=== PATIENT | female | born 1955 | race Caucasian/White ===

== ENCOUNTER 2021-12-24 05:52 | Inpatient (IN) ==
--- NOTE | 2021-12-02 14:45 | PAT Medication Instructions ---
Medication Instructions Date of Service December 02, 2021 Home Medications allopurinol 300 mg tablet 300 mg PO HS alprazolam 0.25 mg tablet (Xanax) 0.25 mg PO BID PRN aspirin 81 mg tablet,delayed release 81 mg PO QAM biotin 10,000 mcg capsule 10,000 mcg PO QAM cholecalciferol (vitamin D3) 50 mcg (2,000 unit) capsule (Vitamin D3) 50 mcg PO 3XWK cyanocobalamin (vitamin B-12) 1,000 mcg/mL injection syringe 1,000 mcg 3XWK hydrochlorothiazide 25 mg tablet 25 mg PO QAM metformin 1,000 mg tablet 1,000 mg PO BID metoprolol tartrate 25 mg tablet 25 mg PO BID potassium chloride 10 mEq capsule,extended release 20 meq PO BID pravastatin 20 mg tablet 20 mg PO HS promethazine 25 mg tablet 25 mg PO Q6H PRN vilazodone 20 mg tablet (Viibryd) 20 mg PO QAM Continue as directed cholecalciferol (vitamin D3) 50 mcg (2,000 unit) capsule (Vitamin D3) 50 mcg PO 3XWK (not day of surgery) cyanocobalamin (vitamin B-12) 1,000 mcg/mL injection syringe 1,000 mcg 3XWK (not day of surgery) promethazine 25 mg tablet 25 mg PO Q6H PRN(if needed) ASK your prescriber and surgeon aspirin 81 mg tablet,delayed release 81 mg PO QAM STOP taking 2 weeks before surgery biotin 10,000 mcg capsule 10,000 mcg PO QAM DO NOT take the morning of surgery hydrochlorothiazide 25 mg tablet 25 mg PO QAM metformin 1,000 mg tablet 1,000 mg PO BID potassium chloride 10 mEq capsule,extended release 20 meq PO BID Take morning of surgery With a small sip of water, OTHERWISE NOTHING TO EAT OR DRINK AFTER MIDNIGHT: alprazolam 0.25 mg tablet (Xanax) 0.25 mg PO BID PRN(if needed) metoprolol tartrate 25 mg tablet 25 mg PO BID vilazodone 20 mg tablet (Viibryd) 20 mg PO QAM Take evening before surgery allopurinol 300 mg tablet 300 mg PO HS alprazolam 0.25 mg tablet (Xanax) 0.25 mg PO BID PRN(if needed) metformin 1,000 mg tablet 1,000 mg PO BID metoprolol tartrate 25 mg tablet 25 mg PO BID pravastatin 20 mg tablet 20 mg PO HS Other Notes If you have any questions please call us at [phone] or [phone] or [phone] or [phone]
--- NOTE | 2021-12-10 12:44 | Anesthesiology Consultation ---
Date of Service December 10, 2021 Assessment & Plan (1) Encounter for pre-operative examination: - will attempt to obtain most recent chest CT. - check BSG am DOS. - awaiting surgeon ordered medical clearance. - anesthesia reaction: combative/belligerent. - COVID screening: Per assessment on 12/10/2021: Travel screen negative, no known COVID-19 positive contacts or current COVID-19 related symptoms in past 2 weeks. Patient vaccinated. Surgeon arranging preop COVID testing, scheduled 12/22/2021. Awaiting results. Chart Review Chart Review: Pending: Refer to Additional Notes / Consult section and Patient seen in Pre Admission Testing Teaching & Discussion Pre-Anesthesia Teaching/Discussion Notes: Instructed NPO after midnight before surgery, except medications with 15 cc of water. Medication instructions provided according to the PAT guidelines. History Surgery Operation Date: 12/24/21 07:45 Proposed Procedures p L3-S1 Revision Decompression and Fusion Spinal Cord Monitoring - Jai Cho, Height/Weight Height: 5 ft 4 in Weight: 84.4 kg Allergies Allergy/AdvReac Type Severity Reaction Status Date / Time ampicillin Allergy Severe RASH/ITCHY Verified 11/30/21 15:06 THROAT cephalexin [From Keflex] Allergy Severe RASH/ITCHY Verified 11/30/21 15:06 THROAT fish derived Allergy Severe Anaphylaxis Verified 11/30/21 15:06 hydrocodone Allergy Severe RASH/ITCHING Verified 11/30/21 15:07 ALL OVER BODY morphine Allergy Severe Anaphylaxis Verified 11/30/21 15:06 oxycodone [From Percocet] Allergy Severe Anaphylaxis Verified 11/30/21 15:06 Penicillins Allergy Severe TONGUE Verified 11/30/21 15:06 SWELLING prednisone Allergy Severe THROAT Verified 11/30/21 15:07 SWELLING tramadol Allergy Severe RASH/ITCHY Verified 11/30/21 15:06 THROAT codeine Allergy Intermediate nausea, Verified 12/10/21 13:16 vomiting, urticaria and pruritus IV ANTIBIOTICS Allergy Severe ORAL YEAST Uncoded 11/30/21 15:35 INFECTION/THRUSH Medications Home Medications Medication Instructions Recorded Confirmed Last Taken allopurinol 300 mg tablet 300 mg PO HS 11/30/21 11/30/21 Unknown alprazolam 0.25 mg tablet (Xanax) 0.25 mg PO BID PRN 11/30/21 11/30/21 Unknown aspirin 81 mg tablet,delayed 81 mg PO QAM 11/30/21 11/30/21 Unknown release biotin 10,000 mcg capsule 10,000 mcg PO QAM 11/30/21 11/30/21 Unknown cholecalciferol (vitamin D3) 50 50 mcg PO 3XWK 11/30/21 11/30/21 Unknown mcg (2,000 unit) capsule (Vitamin D3) cyanocobalamin (vitamin B-12) 1,000 mcg 3XWK 11/30/21 11/30/21 Unknown 1,000 mcg/mL injection syringe hydrochlorothiazide 25 mg tablet 25 mg PO QAM 11/30/21 11/30/21 Unknown metformin 1,000 mg tablet 1,000 mg PO BID 11/30/21 11/30/21 Unknown metoprolol tartrate 25 mg tablet 25 mg PO BID 11/30/21 11/30/21 Unknown potassium chloride 10 mEq 20 meq PO BID 11/30/21 11/30/21 Unknown capsule,extended release pravastatin 20 mg tablet 20 mg PO HS 11/30/21 11/30/21 Unknown promethazine 25 mg tablet 25 mg PO Q6H PRN 11/30/21 11/30/21 Unknown vilazodone 20 mg tablet (Viibryd) 20 mg PO QAM 11/30/21 11/30/21 Unknown Past Medical History Medical History (Updated 12/10/21 @ 13:23 by Lydia Beltran PA-C) Anxiety and depression Chronic obstructive pulmonary disease denies rescue inhaler Degenerative disc disease Diabetes mellitus, type 2 NIDDM Hx of basal cell carcinoma nose s/p excision Hyperlipidemia Hypertension controlled, stable per pt On home oxygen therapy 2.5 AT HS ONLY, states sleep study was negative for sleep apnea Peripheral neuropathy Post traumatic stress disorder Warthin tumor REMOVED Patient denies h/o stroke, seizures, heart attack, heart failure, blood clots or blood transfusions. Exercise / Class Metabolic Activity III < 4 Walking/Shop/Light housework (denies CP or SOB) Past Family History Family History Mother Family history of diabetes mellitus Family hx of colon cancer Father Family history of diabetes mellitus Other No family history of adverse response to anesthesia Past Surgical History Surgical History (Updated 12/10/21 @ 13:24 by Lydia Beltran PA-C) Fusion of spine LUMBAR H/O abdominal surgery BENIGN CYST REMOVED ATTACHED TO COLON AND OVARY H/O exploratory laparotomy MULTIPLE H/O parathyroidectomy H/O partial thyroidectomy X 2 (RESULTED IN TOTAL THYROIDECTOMY) BENIGN H/O shoulder surgery RT History of ankle surgery RT & HARDWARE REMOVED History of appendectomy History of bronchoscopy History of carpal tunnel release LEFT History of colonoscopy History of dilatation and curettage History of hysterectomy History of parotid gland removal History of tonsillectomy History of total hip arthroplasty RT Hx of basal cell carcinoma excision NOSE AREA Past Anesthesia History Other (anesthesia reaction: Pt relays concern of being told of belligerent behavior post-op; sister emotional crying after surgery) History of PONV No Hx of PONV and Hx of Motion Sickness Social History Smoking Status: Current every day smoker tobacco type: cigarettes Smoking cigarettes per day: LESS THAN 10 PER DAY ON AVERAGE *ADVISED Do You Dip or Chew Tobacco: No Hx Alcohol Use: No substance use type: does not use Review of Systems Occasional chronic wheezing with smoking, denies change or worsening. Patient denies chest pain, shortness of breath, dyspnea on exertion, witnessed apneas, reflux, fever, chills, cough, or palpitations. Physical Exam Vital Signs Vitals BP 126/79 P 72 TEMP 97.5 SP02 96% on RA RESP 17 Physical Full cervical extension range of motion without pain TMD 3.5 finger breaths Mallampati Score 2 Dentition: intact, 7 remaining teeth lower; denies chipped or loose teeth, caps/crowns, implants or bridges Lungs: normal respiratory effort. Clear throughout to auscultation, no adventitious breath sounds Cardiac: regular rate and rhythm, no murmurs noted Carotid arteries: negative bruit bilat Lab Results Anesthesia Preop Results Results Anesthesia Widget: WBC 8.66 K/uL (4.8-10.8) 12/10/21 Hgb 14.1 g/dL (12.0-16.0) 12/10/21 Hct 43.0 % (37-47) 12/10/21 Plt 315 K/uL (130-400) 12/10/21 Na 142 mmol/L (136-145) 12/10/21 K 4.0 mmol/L (3.5-5.1) 12/10/21 Cl 108 mmol/L (98-107) H 12/10/21 CO2 26 mmol/L (21-32) 12/10/21 BUN 20 mg/dl (6-23) 12/10/21 Creat 0.81 mg/dl (0.6-1.2) 12/10/21 Glucose Level 87 mg/dl (70-99(Fasting)) 12/10/21 PT 10.3 Seconds (9.0-12.0) 12/10/21 PTT 25.7 Seconds (21.0-31.0) 12/10/21 INR 1.0 (0.9-1.1) 12/10/21 HA1c 6.0 % (4.5-5.6) H 12/10/21 Urine Color Yellow 12/10/21 Urine Appearance Clear (Clear) 12/10/21 Urine pH 5.0 (4.5-7.5) 12/10/21 Urine Specific Greig 1.019 (1.000-1.030) 12/10/21 Urine Protein Negative (Negative) 12/10/21 Urine Glucose (UA) Negative (Negative) 12/10/21 Urine Ketones Negative (Negative) 12/10/21 Urine Blood Negative (Negative) 12/10/21 Urine Nitrite Negative (Negative) 12/10/21 Urine Bilirubin Negative (Negative) 12/10/21 Urine Urobilinogen Negative (Negative) 12/10/21 Urine Leukocyte Esterase 1+ (Negative) H 12/10/21 Urine WBC (Auto) 5-10 /hpf (0-5) H 12/10/21 Urine RBC (Auto) 0-4 /hpf (0-4) 12/10/21 Urine Hyaline Casts (Auto) 0 /lpf (0-5) 12/10/21 Urine Epithelial Cells (Auto) 20-30 /lpf (0-5) H 12/10/21 Urine Bacteria (Auto) Negative (Negative) 12/10/21 Blood Type O Negative 12/10/21 Antibody Screen NEGATIVE 12/10/21 Testing Electrocardiogram Date: 12/10/21 NSR, rate 64 bpm Chest X-Ray Date: 12/10/21 The cardiomediastinal and hilar silhouettes are within normal limits. No pneumothorax, pleural effusion or overt pulmonary edema. There is a 9.4 cm basilar triangular opacity noted on the lateral view. Degenerative changes of the shoulders and spine. IMPRESSION: 1. No acute processes of the chest. 2. Basilar pulmonary opacity likely correlates with the patient's reportedly known pulmonary sequestration.
[2021-12-24] MEDS ORDERED: CeleBREX 200 MG CAP PO SCH (06:00)
[2021-12-24] MEDS ORDERED: LR 500ML BOLUS, THEN 15ML/HR IV SCH (06:00)
[2021-12-24] MEDS ORDERED: CLINDAMYCIN/D5W 600 MG/54 ML BAG IV SCH (06:00)
[2021-12-24] MEDS ORDERED: ACETAMINOPHEN 500 MG TAB PO SCH (06:00)
[2021-12-24] MEDS ORDERED: GABAPENTIN 300 MG CAP PO SCH (06:00)
[2021-12-24] MEDS ORDERED: PROPOFOL IV EMULSION 10 MG/ML 20 ML VIAL IV ONE (06:51)
[2021-12-24] MEDS ORDERED: fentaNYL citrate 100 MCG/2 ML VIAL ONE (06:51)
[2021-12-24] MEDS ORDERED: ROCURONIUM BROMIDE 10 MG/ML 5 ML VIAL IV ONE (06:51)
[2021-12-24] MEDS ORDERED: LIDOCAINE 2% 2 ML VIAL/AMP(20MG/ML) INFIL ONE (06:51)
[2021-12-24] MEDS ORDERED: MIDAZOLAM HCL 1 MG/ML 2ML VIAL ONE (06:51)
[2021-12-24] MEDS ORDERED: ATROPINE SULFATE 0.1 MG/ML 10ML SYR IV PRN (07:08)
[2021-12-24] MEDS ORDERED: BUPIVACAINE/EPINEPHRINE 0.25% 1:200,000 30 ML VIAL ONE (07:08)
[2021-12-24] MEDS ORDERED: PROMETHAZINE HCL 12.5 MG in SODIUM CHLORIDE 0.9% 50 ML IV PRN ×2 (07:08→13:06)
[2021-12-24] MEDS ORDERED: ONDANSETRON INJ 2 MG/ML 2 ML VIAL IV PRN ×2 (07:08→13:06)
--- NOTE | 2021-12-24 07:25 | History & Physical Bridge Note ---
Date of Service December 24, 2021 History & Physical Bridge Note I have examined the patient, reviewed the History & Physical and in the interval since the performance of the History & Physical I have noted the following changes of clinical significance: no changes noted
[2021-12-24] MEDS ORDERED: ONDANSETRON INJ 2 MG/ML 2 ML VIAL ONE ×2 (07:27→09:42)
--- NOTE | 2021-12-24 07:27 | History & Physical Report ---
Date of Service December 24, 2021 Assessment & Plan (1) Neurogenic claudication due to lumbar spinal stenosis: Plan: L3-S1 revision decompression and fusion History of Present Illness Chief Complaint: Back and bilateral leg pain Primary Care Provider: Love Price DO This is a 66-year-old female who presents with current persistent back and bilateral leg pain. Failed extensive course of nonoperative care is here for surgical invention. Allergies Allergy/AdvReac Type Severity Reaction Status Date / Time ampicillin Allergy Severe RASH/ITCHY Verified 12/24/21 06:24 THROAT cephalexin [From Keflex] Allergy Severe RASH/ITCHY Verified 12/24/21 06:24 THROAT fish derived Allergy Severe Anaphylaxis Verified 12/24/21 06:24 hydrocodone Allergy Severe RASH/ITCHING Verified 12/24/21 06:24 ALL OVER BODY morphine Allergy Severe Anaphylaxis Verified 12/24/21 06:24 oxycodone [From Percocet] Allergy Severe Anaphylaxis Verified 12/24/21 06:24 Penicillins Allergy Severe TONGUE Verified 12/24/21 06:24 SWELLING prednisone Allergy Severe THROAT Verified 12/24/21 06:24 SWELLING tramadol Allergy Severe RASH/ITCHY Verified 12/24/21 06:24 THROAT codeine Allergy Intermediate nausea, Verified 12/24/21 06:24 vomiting, urticaria and pruritus IV ANTIBIOTICS Allergy Severe ORAL YEAST Uncoded 12/24/21 06:24 INFECTION/THRUSH Home Medications Medication Instructions Recorded Confirmed Type allopurinol 300 mg tablet 300 mg PO HS 11/30/21 12/24/21 History alprazolam 0.25 mg tablet (Xanax) 0.25 mg PO BID PRN 11/30/21 12/24/21 History aspirin 81 mg tablet,delayed 81 mg PO QAM 11/30/21 12/24/21 History release biotin 10,000 mcg capsule 10,000 mcg PO QAM 11/30/21 12/24/21 History cholecalciferol (vitamin D3) 50 50 mcg PO 3XWK 11/30/21 12/24/21 History mcg (2,000 unit) capsule (Vitamin D3) cyanocobalamin (vitamin B-12) 1,000 mcg 3XWK 11/30/21 12/24/21 History 1,000 mcg/mL injection syringe hydrochlorothiazide 25 mg tablet 25 mg PO QAM 11/30/21 12/24/21 History metformin 1,000 mg tablet 1,000 mg PO BID 11/30/21 12/24/21 History metoprolol tartrate 25 mg tablet 25 mg PO BID 11/30/21 12/24/21 History potassium chloride 10 mEq 20 meq PO BID 11/30/21 12/24/21 History capsule,extended release pravastatin 20 mg tablet 20 mg PO HS 11/30/21 12/24/21 History promethazine 25 mg tablet 25 mg PO Q6H PRN 11/30/21 12/24/21 History vilazodone 20 mg tablet (Viibryd) 20 mg PO QAM 11/30/21 12/24/21 History levothyroxine 100 mcg tablet 100 mcg PO DAILY 12/24/21 12/24/21 History (Synthroid) Past Med/Surg History Medical History (Updated 12/24/21 @ 07:26 by Jai Cho DO) Anxiety and depression Chronic obstructive pulmonary disease denies rescue inhaler Degenerative disc disease Diabetes mellitus, type 2 NIDDM Hx of basal cell carcinoma nose s/p excision Hyperlipidemia Hypertension controlled, stable per pt On home oxygen therapy 2.5 AT HS ONLY, states sleep study was negative for sleep apnea Peripheral neuropathy Post traumatic stress disorder Warthin tumor REMOVED Surgical History Fusion of spine LUMBAR H/O abdominal surgery BENIGN CYST REMOVED ATTACHED TO COLON AND OVARY H/O exploratory laparotomy MULTIPLE H/O parathyroidectomy H/O partial thyroidectomy X 2 (RESULTED IN TOTAL THYROIDECTOMY) BENIGN H/O shoulder surgery RT History of ankle surgery RT & HARDWARE REMOVED History of appendectomy History of bronchoscopy History of carpal tunnel release LEFT History of colonoscopy History of dilatation and curettage History of hysterectomy History of parotid gland removal History of tonsillectomy History of total hip arthroplasty RT Hx of basal cell carcinoma excision NOSE AREA Family History Mother Family history of diabetes mellitus Family hx of colon cancer Father Family history of diabetes mellitus Other No family history of adverse response to anesthesia Social History Smoking Status: Current every day smoker Cigarettes Per Day: LESS THAN 10 PER DAY ON AVERAGE *ADVISED; Second Hand Exposure: Yes (IN THE PAST); Do You Dip or Chew Tobacco: No; Hx Alcohol Use: No Preferred Language: Cypriot [employer] Required: No Beliefs That Will Affect Care: None Current Living Situation: Alone Feels Safe at Home: Yes Safety Concerns: Feels Safe At This Time Assistive Devices: Denture - Upper, Glasses and Oxygen - at Night Physical Exam Physical Exam: Patient is alert and oriented heart regular rate and rhythm Lungs clear to auscultation Results & Data Results & Data ([facility]) Vital Signs (Past 12 Hours) Vital Signs Temp Pulse Resp BP Pulse Ox 12/24/21 06:29 36.8 C 72 18 133/56 L 96
[2021-12-24] MEDS ORDERED: DEXAMETHASONE SOD INJ 4 MG/ML VIAL ONE ×2 (08:18→10:19)
[2021-12-24] MEDS ORDERED: HYDROmorphone INJ 2 MG/ML SYR/VIAL ONE (08:19)
[2021-12-24] MEDS ORDERED: PHENYLEPHRINE HCL 10 MG/ML VIAL ONE (08:28)
[2021-12-24] MEDS ORDERED: ePHEDrine sulfate 50 MG/ML AMP ONE (08:28)
[2021-12-24] MEDS ORDERED: NEOSTIGMINE METHYLSULFATE 1 MG/ML 10ML VIAL ONE (09:42)
[2021-12-24] MEDS ORDERED: GLYCOPYRROLATE 0.2 MG/ML VIAL ONE (09:42)
[2021-12-24] MEDS ORDERED: FLOSEAL HEMOSTATIC MATRIX 10ML TOP ONE (09:58)
--- NOTE | 2021-12-24 10:44 | Operative Report ---
Post Operative Report Pre & Post Diagnosis Operation Date: 12/24/21 07:45 Pre-Op Diagnosis: Neurogenic Claudication due to Lumbar Spinal Stenosis Post-Op Diagnosis: Neurogenic Claudication due to Lumbar Spinal Stenosis I identified the patient and participated in the time-out.: Yes Procedure Operation Date: 12/24/21 07:45 Actual Procedures #1 revision decompression with bilateral medial facetectomies and foraminotomies L2-L3, L3-L4, L4-5 L5-S1. #2 posterior spinal fusion L3-S1. #3 placement posterior segmental instrumentation L3-S1. #4 interbody fusion L3-L4, L4-5 and L5-S1. #5 placement of Spira cage 13 x 26 mm at L3-L4, 10 x 26 mm at L4-5, 9 x 26 mm at L5-S1. #6 placement locally harvested morselized autograft in the posterior gutters. #7 placement infuse collagen sponge, and master graft in the posterior gutters and I factor interbody spaces. Surgeon Jai Cho, DO Inbound Sales Representative Mook Dean Estimated Blood Loss 100 Findings See Below The patient is 5 foot 3 inches tall weighing over 83 kg with a BMI in excess of 32. The patient's body habitus did contribute to his significant technical difficulty requiring her deepest retractors and longer instruments in order to perform her procedure. This at least 50% increased operative time. Specimens None Indications This is a 66-year-old female who presents with above-mentioned diagnosis after failed extensive course of nonoperative care she is here for surgical invention. Description of Procedure Patient was met with identified informed consent obtained. Patient was then taken to the operative suite underwent an patient placed in a prone position the [facility] top Regan frame. All bony prominences well-padded eyes inspected to ensure no external pressure placed upon the. This point the lumbar spine was prepped and draped in normal sterile fashion. Sharp dissection with the assistance of Bovie cautery was performed down to and exposing the remaining lamina and transverse processes of L3 L4-5 and sacral ala bilaterally. From caudal at fashion revision complete laminectomy of the 5 L4 L3 and L2 was performed including medial facetectomies and foraminotomies addressing severe spinal stenosis. Pedicle screws were then placed in L3-L4-L5 and S1 levels bilaterally with assistance of fluoroscopy and proper sized alejandro placed. By way of a transforaminal approach on the left complete discectomy of L5-S1 was performed endplates curetted to subcortical bleeding bone and a 9 x 26 mm Spira cage filled with I factor tapped in position. Then proceeded to L4-L5 and again by way of a transfemoral approach and left complete discectomy performed endplates curetted to subcortically bone and a 10 x 26 mm spiral cage with I factor tapped in position. Lastly presented to L3-L4 and again by way of a transforaminal approach and left pleat discectomy performed endplates curetted to subcortically bone and a 13 x 26 mm spiral cage with I factor tapped in position. The rods were then compressed locked in final position bilaterally. The transverse processes of L3-L4-L5 and sacral ala burred to subcortical bleeding bone. Infuse collagen sponge master graft local autograft was placed in the posterior gutters. 15 round ANAND drain inserted. The incision was then closed with 1 Vicryl the fascia 2-0 Vicryl subcutaneously and 4 Monocryl for final skin closure. Steri-Strip sterile dressings placed. Patient waken taken to PACU stable condition. Please note spinal cord monitoring visualized at the procedure no changes noted. Lastly Mook Dean was present at the entire surgeon while the patient positioning complex portions of the surgery and final skin closure. I attest to the content of the Intraoperative Record and any orders documented therein. Any exceptions are noted below.
--- NOTE | 2021-12-24 10:54 | Fluoroscopy Report ---
FL lumbar spine 2-3V CLINICAL HISTORY: L3-S1 REVISION decompression and fusion COMPARISON STUDY: None. FLUOROSCOPY TIME: 28 seconds. FINDINGS: 2 fluoroscopic spot images of the lumbar spine demonstrate posterior decompression and fusi on from L3 through S1 with pedicle screws and rods. Disc spacers are in place. The hardware appears i ntact. IMPRESSION: Fluoroscopic assistance provided for L3-S1 posterior decompression and fusion. ACT 112: Negative or not required by law. Electronically signed by: Benson Damon M.D. 12/24/2021 10:53 AM
[2021-12-24] MEDS: HYDROmorphone INJ 1 MG/ML SYRINGE IV PRN ×4 (11:49→22:55)
--- NOTE | 2021-12-24 12:07 | Anesthesiology Progress Note ---
Date of Service December 24, 2021 Anesthesia Post Procedure Vital Signs Vital Signs: Temp Pulse Pulse Resp BP BP Pulse Ox 12/24/21 11:55 74 14 126/71 93 12/24/21 11:45 83 18 130/66 95 12/24/21 11:35 84 13 131/72 98 12/24/21 11:25 86 18 124/69 97 12/24/21 11:15 36.2 C L 87 12 131/82 94 12/24/21 06:29 36.8 C 72 18 133/56 L 96 Pain Intensity Lower Back: Pain Intensity: 7 Transfer of Care Handoff Completed per policy Notes Mental Status: alert / awake / arousable Patient Amnestic to Procedure: Yes Nausea / Vomiting: adequately controlled Pain: adequately controlled Airway Patency, RR, SpO2: stable & adequate BP & HR: stable & adequate Hydration State: stable & adequate Anesthetic Complications: no major complications apparent
[2021-12-24] MEDS ORDERED: diphenhydrAMINE Capsule 25 MG CAP PO PRN (13:06)
[2021-12-24] MEDS ORDERED: LORazepam 2 MG/1 ML VIAL IV PRN (13:06)
[2021-12-24] MEDS ORDERED: ALUMINUM/MAGNESIUM SUSP 30 ML UDC PO PRN (13:06)
[2021-12-24] MEDS ORDERED: ACETAMINOPHEN 1,000 MG/100 ML VIAL IV PRN (13:06)
[2021-12-24] MEDS ORDERED: METOCLOPRAMIDE HCL INJ 5 MG/ML 2 ML VIAL IV PRN (13:06)
[2021-12-24] MEDS ORDERED: NALOXONE HCL 0.4 MG/1 ML VIAL/CARP IV PRN (13:06)
[2021-12-24] MEDS ORDERED: FAMOTIDINE 20 MG TAB PO PRN (13:06)
[2021-12-24] MEDS ORDERED: bisacodyL 10 MG SUPP PR PRN (13:06)
[2021-12-24] MEDS ORDERED: ACETAMINOPHEN 500 MG TAB PO PRN (13:06)
[2021-12-24] MEDS ORDERED: SOD PHOSPHATE/SOD BIPHOSPHATE ENEMA 132 ML BTL PR PRN (13:06)
[2021-12-24] MEDS ORDERED: ALPRAZolam 0.25 MG TABLET PO PRN (13:06)
[2021-12-24] MEDS ORDERED: LORazepam 0.5 MG TAB PO PRN (13:06)
[2021-12-24] MEDS ORDERED: HYDROmorphone INJ 0.5 MG/0.5 ML SYR IV PRN (13:06)
[2021-12-24] MEDS ORDERED: hydrOXYzine HCl 25 MG TAB PO PRN (13:06)
[2021-12-24] MEDS ORDERED: DO NOT ADMINISTER FLU VACCINE PRN (13:06)
[2021-12-24] MEDS ORDERED: DO NOT ADMINISTER PNEUMOCOCCAL VACCINE PRN (13:06)
[2021-12-24] MEDS ORDERED: MAGNESIUM HYDROXIDE SUSP 30 ML UDC PO PRN (13:06)
[2021-12-24] MEDS ORDERED: PROMETHAZINE HCL 25 MG TAB PO PRN (13:06)
[2021-12-24] MEDS ORDERED: ONDANSETRON 4 MG OD TAB PO PRN (13:06)
[2021-12-24] MEDS: SODIUM CHLORIDE 0.9% 1000ML 1,000 ML IV SCH ×2 (13:33→22:54)
--- NOTE | 2021-12-24 13:56 | Consultation ---
Date of Consultation December 24, 2021 Assessment & Plan (1) Status post lumbar surgery: Post op day# 0 S/P revision decompression L2-S1 and fusion L3-S1 by Dr Cho EB#100ml -pain management per ortho -wound management per ortho -PT/OT as appropriate -DVT prophylaxis per ortho -incentive spirometry -monitor H&H for acute blood loss anemia; pre-op Hgb: 14 (2) Diabetes mellitus, type 2: A1c: 6.0 on 12/10/2021 -Hold home metformin -NovoLog sliding scale per protocol (3) Hypertension: -Continue metoprolol tartrate, HCTZ with holding parameters (4) Hyperlipidemia: -Continue pravastatin (5) Chronic obstructive pulmonary disease: Not on home inhalers -Albuterol neb as needed (6) Nocturnal hypoxia: - Continue 2.5 L oxygen at bedtime (7) Anxiety and depression: - Continue home meds (8) Tobacco use: -Denies nicotine patch H/O THYROIDECTOMY -Continue levothyroxine DVT Prophylaxis -SCDs per ortho Disposition per primary service Follows with Dr Love Price for routine care Pt was seen and care coordinated with Dr Layne. See addendum Thank you for this consultation. We will follow the patient with you during their hospital stay. You can reach a member of the [facility]ist Team 20/02 via [email or web address] Supervising Physician Co-Signing Physician Notes Patient is a 66-year-old female with history of diabetes mellitus, tobacco use disorder, COPD, nocturnal hypoxia and other medical problems was consulted for postop medical management after having lumbar surgery by Dr. Cho. Patient is doing well postoperatively. Admits to having some pain at surgical site. Denies any chest pain, shortness of breath, dizziness, nausea, abdominal pain. On exam patient is obese, no apparent distress, normocephalic atraumatic, EOMI, lungs are clear to auscultation, normal breath sounds, S1-S2, no murmur, no pedal edema, abdomen soft, nontender, normal bowel sounds, back-surgical site in dressing, alert, awake, oriented, grossly moves all extremities. Labs from December 10, 2021 reviewed. HbA1c 6.0. Imaging studies reviewed. Patient is consulted for postop medical management. Pain control, activity, DVT prophylaxis as per primary team. Bowel regimen to prevent constipation. Monitor for postop anemia. Incentive spirometry. Agree with starting on insulin for management of diabetes mellitus. Monitor blood pressure. Continue supplemental oxygen at bedtime. Counseled to quit smoking. Patient refused nicotine patch. I personally reviewed the record. Patient is interviewed and examined at bedside. Patient's care is coordinated with Ne Walters PA-C. Please refer to the documentation above for details of patient's presentation and for discussion of other issues. History of Present Illness Requesting Physician: Dr Cho Reason for Consultation: Post op medical management Attending Physician: Jai Cho, DO History of Present Illness Patient is 66 y/o F with PMH DM II, HTN, HLD, COPD, nocturnal hypoxia on 2.5 L at bedtime, anxiety, depression, tobacco use seen in medical consultation s/p revision decompression L2-S1 and fusion L3-S1 today by Dr. Cho. Postop patient reports feeling sleepy and having dull low back pain rating 7 out of 10 on pain scale. Reports BM yesterday. Has Rodriguez cath in place. Denies fever/chills, diaphoresis, N/V/D/C, BETH, dizziness, vision changes, neck pain, CP, SOB, cough, choking, rhinorrhea, abdominal pain, paresthesias, extremity edema, rashes, urinary symptoms. Allergies Allergy/AdvReac Type Severity Reaction Status Date / Time ampicillin Allergy Severe RASH/ITCHY Verified 12/24/21 06:24 THROAT cephalexin [From Keflex] Allergy Severe RASH/ITCHY Verified 12/24/21 06:24 THROAT fish derived Allergy Severe Anaphylaxis Verified 12/24/21 06:24 hydrocodone Allergy Severe RASH/ITCHING Verified 12/24/21 06:24 ALL OVER BODY morphine Allergy Severe Anaphylaxis Verified 12/24/21 06:24 oxycodone [From Percocet] Allergy Severe Anaphylaxis Verified 12/24/21 06:24 Penicillins Allergy Severe TONGUE Verified 12/24/21 06:24 SWELLING prednisone Allergy Severe THROAT Verified 12/24/21 06:24 SWELLING tramadol Allergy Severe RASH/ITCHY Verified 12/24/21 06:24 THROAT codeine Allergy Intermediate nausea, Verified 12/24/21 06:24 vomiting, urticaria and pruritus IV ANTIBIOTICS Allergy Severe ORAL YEAST Uncoded 12/24/21 06:24 INFECTION/THRUSH Home Medications Medication Instructions Recorded Confirmed Type allopurinol 300 mg tablet 300 mg PO HS 11/30/21 12/24/21 History alprazolam 0.25 mg tablet (Xanax) 0.25 mg PO BID PRN 11/30/21 12/24/21 History aspirin 81 mg tablet,delayed 81 mg PO QAM 11/30/21 12/24/21 History release biotin 10,000 mcg capsule 10,000 mcg PO QAM 11/30/21 12/24/21 History cholecalciferol (vitamin D3) 50 50 mcg PO 3XWK 11/30/21 12/24/21 History mcg (2,000 unit) capsule (Vitamin D3) cyanocobalamin (vitamin B-12) 1,000 mcg 3XWK 11/30/21 12/24/21 History 1,000 mcg/mL injection syringe hydrochlorothiazide 25 mg tablet 25 mg PO QAM 11/30/21 12/24/21 History metformin 1,000 mg tablet 1,000 mg PO BID 11/30/21 12/24/21 History metoprolol tartrate 25 mg tablet 25 mg PO BID 11/30/21 12/24/21 History potassium chloride 10 mEq 20 meq PO BID 11/30/21 12/24/21 History capsule,extended release pravastatin 20 mg tablet 20 mg PO HS 11/30/21 12/24/21 History promethazine 25 mg tablet 25 mg PO Q6H PRN 11/30/21 12/24/21 History vilazodone 20 mg tablet (Viibryd) 20 mg PO QAM 11/30/21 12/24/21 History levothyroxine 100 mcg tablet 100 mcg PO DAILY 12/24/21 12/24/21 History (Synthroid) Patient History Medical History (Updated 12/24/21 @ 14:18 by Ne Walters PA-C) Anxiety and depression Chronic obstructive pulmonary disease denies rescue inhaler Degenerative disc disease Diabetes mellitus, type 2 NIDDM Hx of basal cell carcinoma nose s/p excision Hyperlipidemia Hypertension controlled, stable per pt Nocturnal hypoxia On home oxygen therapy 2.5 AT HS ONLY, states sleep study was negative for sleep apnea Peripheral neuropathy Post traumatic stress disorder Warthin tumor REMOVED Surgical History (Updated 12/24/21 @ 14:18 by Ne Walters PA-C) Fusion of spine LUMBAR H/O abdominal surgery BENIGN CYST REMOVED ATTACHED TO COLON AND OVARY H/O exploratory laparotomy MULTIPLE H/O parathyroidectomy H/O partial thyroidectomy X 2 (RESULTED IN TOTAL THYROIDECTOMY) BENIGN H/O shoulder surgery RT History of ankle surgery RT & HARDWARE REMOVED History of appendectomy History of bronchoscopy History of carpal tunnel release LEFT History of colonoscopy History of dilatation and curettage History of hysterectomy History of parotid gland removal History of tonsillectomy History of total hip arthroplasty RT Hx of basal cell carcinoma excision NOSE AREA Family History Mother Family history of diabetes mellitus Family hx of colon cancer Father Family history of diabetes mellitus Other No family history of adverse response to anesthesia Social History Smoking Status: Current every day smoker Cigarettes Per Day: LESS THAN 10 PER DAY ON AVERAGE *ADVISED; Second Hand Exposure: Yes (IN THE PAST); Do You Dip or Chew Tobacco: No; Hx Alcohol Use: No Preferred Language: [employer] Consultant Required: No Beliefs That Will Affect Care: None Current Living Situation: Alone Feels Safe at Home: Yes Safety Concerns: Feels Safe At This Time Assistive Devices: Denture - Upper, Glasses and Oxygen - at Night Review of Systems Review of Systems: All systems reviewed & are unremarkable except as noted in HPI & below Physical Exam Physical Exam: General: no acute distress, obese Head: normocephalic, atraumatic Eyes: conjunctiva non-injected, anicteric ENT: normal inspection external ears, nose, mucous membranes moist Neck: supple, trachea midline Lungs: clear, no respiratory distress, no wheezing/rhonchi/rales CV: RRR, no murmur, no pretibial edema Abd: normal BS, soft, non-tender Back: +ANAND drain in place with serosanguineous drainage Ext: no cyanosis, no calf tenderness, sensation to light touch intact Neuro: A&O x 3, no focal deficits noted, normal affect Skin: warm, dry Results & Data ([facility]) Vital Signs (Past 12 Hours) Vital Signs Temp Pulse Pulse Pulse Resp BP BP 12/24/21 13:38 36.6 C 85 16 104/68 12/24/21 13:04 36.5 C 89 16 114/76 12/24/21 12:15 76 17 114/81 12/24/21 12:05 36.3 C L 75 12 123/71 12/24/21 11:55 74 14 126/71 12/24/21 11:45 83 18 130/66 12/24/21 11:35 84 13 131/72 12/24/21 11:25 86 18 124/69 12/24/21 11:15 36.2 C L 87 12 131/82 12/24/21 06:29 36.8 C 72 18 133/56 L Pulse Ox 12/24/21 13:38 93 12/24/21 13:04 93 12/24/21 12:15 93 12/24/21 12:05 93 12/24/21 11:55 93 12/24/21 11:45 95 12/24/21 11:35 98 12/24/21 11:25 97 12/24/21 11:15 94 12/24/21 06:29 96 Diagnostic Findings Lumbar Spine X-Ray 12/24/21 07:45 FL lumbar spine 2-3V CLINICAL HISTORY: L3-S1 REVISION decompression and fusion COMPARISON STUDY: None. FLUOROSCOPY TIME: 28 seconds. FINDINGS: 2 fluoroscopic spot images of the lumbar spine demonstrate posterior decompression and fusion from L3 through S1 with pedicle screws and rods. Disc spacers are in place. The hardware appears intact. IMPRESSION: Fluoroscopic assistance provided for L3-S1 posterior decompression and fusion. ACT 112: Negative or not required by law. Electronically signed by: Benson Damon M.D. 12/24/2021 10:53 AM
[2021-12-24] MEDS ORDERED: DEXTROSE 50% 50 ML SYRINGE IV PRN (13:59)
[2021-12-24] MEDS ORDERED: CARBOHYDRATES FOR HYPOGLYCEMIA PO PRN (13:59)
[2021-12-24] MEDS ORDERED: GLUCAGON FOR INJ 1 MG VIAL SQ PRN (13:59)
[2021-12-24] MEDS ORDERED: GLUCOSE 40% GEL 15 GM TUBE PO PRN (13:59)
[2021-12-24] MEDS ORDERED: GLUCOSE 10 TABS/TUBE PO PRN (13:59)
[2021-12-24] MEDS ORDERED: CHOLECALCIFEROL 1,000 UNITS 25 MCG TAB PO SCH (14:00)
[2021-12-24] MEDS ORDERED: ALBUTEROL 0.083% NEBU SOLN 3 ML VIAL NEB PRN (14:13)
[2021-12-24] MEDS: CLINDAMYCIN 600 MG in DEXTROSE 5% 50 ML IV SCH (16:39)
[2021-12-24] MEDS: INSULIN ASPART PER UNIT SC SCH ×2 (17:30→21:44)
[2021-12-24] MEDS: METOPROLOL TARTRATE 25 MG TAB PO SCH (20:54)
[2021-12-24] MEDS: PRAVASTATIN SOD 20 MG TAB PO SCH (20:55)
[2021-12-24] MEDS: DOCUSATE SODIUM/SENNA 50/8.6MG TAB PO SCH (20:55)
[2021-12-24] MEDS: allopurinoL 300 MG TAB PO SCH (20:55)
[2021-12-24] MEDS: POTASSIUM CHLORIDE CRTAB 20 MEQ TABCR PO SCH (20:56)
[2021-12-25] MEDS: CLINDAMYCIN 600 MG in DEXTROSE 5% 50 ML IV SCH (00:11)
[2021-12-25] MEDS: POLYETHYLENE (MIRALAX) 17 GM PACK PO SCH ×4 (05:32→23:06)
[2021-12-25] MEDS: LEVOTHYROXINE SODIUM 100 MCG TABLET PO SCH (05:33)
[2021-12-25] MEDS: HYDROmorphone INJ 1 MG/ML SYRINGE IV PRN (05:38)
[2021-12-25 08:23] LABS: Basophils # (auto) 0.02 K/uL (0-0.2); Basophils % (auto) 0.2 %; Eosinophils # (auto) 0.04 K/uL (0-0.5); Eosinophils % (auto) 0.5 %; Hematocrit (blood only) 33.1 % (37-47); Hemoglobin 10.9 g/dL (12.0-16.0); Immature Granulocytes # (auto) 0.02 K/uL (0.00-0.02); Immature Granulocytes % (auto) 0.2 %; Lymphocytes # (auto) 1.57 K/uL (1.2-3.4); Lymphocytes % (auto) 18.9 %; Mean Corpuscular Hemoglobin 28.4 pg (25-34); Mean Corpuscular Hgb Conc 32.9 g/dL (32-36); Mean Corpuscular Volume 86.2 fL (80-100); Mean Platelet Volume 9.8 fL (7.4-10.4); Monocytes # (auto) 0.95 K/uL (0.11-0.59); Monocytes % (auto) 11.4 %; Neutrophils # (auto) 5.71 K/uL (1.4-6.5); Neutrophils % (auto) 68.8 %; Platelet Count 245 K/uL (130-400); RDW Coefficient of Variation 17.5 % (11.5-14.5); RDW Standard Deviation 55.1 fL (36.4-46.3); Red Blood Count 3.84 M/uL (4.2-5.4); White Blood Count 8.31 K/uL (4.8-10.8)
[2021-12-25 08:37] LABS: BUN Creatinine Ratio 21.4 (10-20); Calcium 8.1 mg/dl (8.5-10.1); Creatinine Clr Calc Pharmacy 68.1 ml/min; Est GFR (African American) 83.9 ml/min; Est GFR (Non-African American) 72.4 ml/min; Potassium 3.8 mmol/L (3.5-5.1)
[2021-12-25] MEDS: hydroCHLOROthiazide 25 MG TAB PO SCH (08:39)
[2021-12-25] MEDS: METOPROLOL TARTRATE 25 MG TAB PO SCH ×2 (08:40→20:09)
[2021-12-25] MEDS: ASPIRIN 81 MG ECTAB PO SCH (08:41)
[2021-12-25] MEDS: POTASSIUM CHLORIDE CRTAB 20 MEQ TABCR PO SCH ×2 (08:41→20:10)
[2021-12-25] MEDS: INSULIN ASPART PER UNIT SC SCH ×4 (08:53→21:43)
[2021-12-25] MEDS ORDERED: dexAMETHasone 6 MG in SYRINGE 0 ML IV SCH (09:00)
--- NOTE | 2021-12-25 11:18 | Orthopedic Progress Note ---
Date of Service December 25, 2021 Assessment & Plan (1) Neurogenic claudication due to lumbar spinal stenosis: Plan: At this time initiate physical therapy monitor ANAND output anticipate discharge home in the next few days. Admission and Anticipated Discharge Date Admission Date: December 24, 2021 Subjective Patient's back pain is controlled leg symptoms markedly improved Physical Exam Physical Exam: On exam she is sitting in the chair at the bedside. She has good strength testing. She appears comfortable. Results & Data ([facility]) Vital Signs (Past 12 Hours) Vital Signs Temp Pulse Resp BP Pulse Ox 12/25/21 08:38 97 H 113/67 12/25/21 07:54 37.3 C 92 H 18 102/63 91 12/25/21 04:16 36.5 C 93 H 16 116/70 97
[2021-12-25] MEDS: HYDROmorphone HCL 2 MG TAB PO PRN ×2 (11:54→20:13)
--- NOTE | 2021-12-25 14:11 | Hospitalist Progress Note ---
Date of Service December 25, 2021 Assessment & Plan (1) Status post lumbar surgery: Plan: Post op day# 1 S/P revision decompression L2-S1 and fusion L3-S1 by Dr Tammie THOMPSON#100ml -pain management per ortho -wound management per ortho -PT/OT as appropriate -DVT prophylaxis per ortho -incentive spirometry -monitor H&H for acute blood loss anemia; pre-op Hgb: 14 -Hemoglobin is 10.9 on 12/25/2021-we will monitor -Medically stable with ongoing pain at the back (2) Diabetes mellitus, type 2: Plan: A1c: 6.0 on 12/10/2021 -Hold home metformin -NovoLog sliding scale per protocol (3) Hypertension: Plan: -Continue metoprolol tartrate, HCTZ with holding parameters -Blood pressure remains stable (4) Hyperlipidemia: Plan: -Continue pravastatin (5) Chronic obstructive pulmonary disease: Plan: Not on home inhalers -Albuterol neb as needed (6) Nocturnal hypoxia: Plan: - Continue 2.5 L oxygen at bedtime (7) Anxiety and depression: Plan: - Continue home meds (8) Tobacco use: Plan: -Denies nicotine patch H/O THYROIDECTOMY -Continue levothyroxine DVT Prophylaxis -SCDs per ortho Disposition per primary service Follows with Dr Love Price for routine care Medically stable Admission and Anticipated Discharge Date Admission Date: December 24, 2021 Subjective 12/25/2021 The patient was seen and examined in medical floor She is a status post L3-S1 revision decompression and fusion Has been complaining of pain but otherwise stable and wants to go home Denies any chest pain, palpitation or shortness of breath Review of Systems Review of Systems: All systems reviewed and are unremarkable except as noted below Physical Exam Physical Exam: Sitting on a chair with minimal distress due to pain Constitutional: well developed, well nourished, + ill appearing and + obese Eyes: PERRL, conjunctivae normal, anicteric sclerae ENMT: external ear and nose normal, oropharynx normal Neck: trachea midline, no thyromegaly Respiratory: no respiratory distress Auscultation: lungs clear to auscultation bilaterally Cardiovascular: Rate/Rhythm: regular rate and regular rhythm; not tachycardic Heart Sounds: normal S1 and normal S2; no murmur Extremities: + edema (Trace edema bilaterally) Gastrointestinal (Abdomen): Inspection/Auscultation: + abdomen distended and normal bowel sounds Percussion/Palpation: abdomen soft; abdomen nontender Musculoskeletal: Back pain with tenderness locally. No acute arthritis in any joint Neurologic: Alert, awake and oriented x3. No focal sensory or no motor deficit appreciated Psychiatric: A+Ox3, euthymic affect Lymphatic: no cervical or axillary lymphadenopathy Results & Data Results & Data ([facility]) Vital Signs (Past 12 Hours) Vital Signs Temp Pulse Resp BP Pulse Ox 12/25/21 11:19 37.2 C 99 H 18 118/68 92 12/25/21 08:38 97 H 113/67 12/25/21 07:54 37.3 C 92 H 18 102/63 91 12/25/21 04:16 36.5 C 93 H 16 116/70 97 Laboratory Results Short CBC 12/25/21 Range/Units 07:57 WBC 8.31 (4.8-10.8) K/uL Hgb 10.9 L (12.0-16.0) g/dL Hct 33.1 L (37-47) % Plt Count 245 (130-400) K/uL BMP 12/25/21 07:57 Sodium 137 Potassium 3.8 Chloride 104 Carbon Dioxide 26 BUN 18 Creatinine 0.84 Glucose 135 H Calcium 8.1 L Medications Administered Current Inpatient Medications Acetaminophen (Acetaminophen 500 Mg Tab) 1,000 mg PO Q8H PRN PRN Reason: MILD Pain Scale 1,2,3 & Pre PT Stop: 01/23/22 13:05 Al Hydrox/Mg Hydrox/Simethicone (Aluminum/Magnesium Susp 30 Ml Udc) 30 ml PO Q6H PRN PRN Reason: Dyspepsia Stop: 01/23/22 13:05 Albuterol (Albuterol 0.083% Nebu Soln 3 Ml Vial) 2.5 mg NEB Q6R PRN; Protocol PRN Reason: Shortness Of Breath Or Wheezing Stop: 01/23/22 14:12 Allopurinol (Allopurinol 300 Mg Tab) 300 mg PO HS MATHEW Stop: 01/23/22 20:59 Last Admin: 12/24/21 20:55 Dose: 300 mg Documented by: Alprazolam (Alprazolam 0.25 Mg Tablet) 0.25 mg PO BID PRN PRN Reason: Anxiety Stop: 01/23/22 13:05 Aspirin (Aspirin 81 Mg Ectab) 81 mg PO [facility] Stop: 01/24/22 08:59 Last Admin: 12/25/21 08:41 Dose: 81 mg Documented by: Bisacodyl (Bisacodyl 10 Mg Supp) 10 mg [place] DAILY PRN PRN Reason: Constipation Stop: 01/23/22 13:05 Dextrose (Dextrose 50% 50 Ml Syringe) 25 - 50 ml IV UD PRN; Protocol PRN Reason: Hypoglycemia Protocol Stop: 01/23/22 13:58 Diphenhydramine HCl (Diphenhydramine Capsule 25 Mg Cap) 25 mg PO Q6H PRN PRN Reason: Allergic Rhinitis/Insomnia Stop: 01/23/22 13:05 Last Admin: 12/25/21 08:01 Dose: 25 mg Documented by: Famotidine (Famotidine 20 Mg Tab) 20 mg PO Q12H PRN PRN Reason: Dyspepsia Stop: 01/23/22 13:05 Glucagon (Glucagon For Inj 1 Mg Vial) 1 mg SQ UD PRN; Protocol PRN Reason: Hypoglycemia Protocol Stop: 01/23/22 13:58 Glucose (Glucose 10 Tabs/Tube) 4 - 8 tabs PO UD PRN; Protocol PRN Reason: Hypoglycemia Protocol Stop: 01/23/22 13:58 Glucose (Glucose 40% Gel 15 Gm Tube) 15 - 30 gm PO UD PRN; Protocol PRN Reason: Hypoglycemia Protocol Stop: 01/23/22 13:58 Hydrochlorothiazide (Hydrochlorothiazide 25 Mg Tab) 25 mg PO [facility] Stop: 01/24/22 08:59 Last Admin: 12/25/21 08:39 Dose: Not Given Documented by: Hydromorphone HCl (Hydromorphone Inj 0.5 Mg/0.5 Ml Syr) 0.5 mg IV Q3H PRN PRN Reason: MODERATE Pain (Scale 4,5,6) & Pre PT Stop: 01/07/22 13:05 Hydromorphone HCl (Hydromorphone Inj 1 Mg/Ml Syringe) 1 mg IV Q3H PRN PRN Reason: SEVERE Pain (Scale 7,8,9,10) Stop: 01/07/22 13:05 Last Admin: 12/25/21 05:38 Dose: 1 mg Documented by: Hydromorphone HCl (Hydromorphone Hcl 2 Mg Tab) 2 mg PO Q4 PRN PRN Reason: moderate-severe Pain Stop: 01/08/22 11:18 Last Admin: 12/25/21 11:54 Dose: 2 mg Documented by: Hydroxyzine HCl (Hydroxyzine Hcl 25 Mg Tab) 25 mg PO Q8H PRN PRN Reason: Anxiety Stop: 01/23/22 13:05 Promethazine HCl 12.5 mg/ (Sodium Chloride) 50.5 mls @ 202 mls/hr IV Q6H PRN PRN Reason: Nausea &/or Vomiting Stop: 01/23/22 13:05 Acetaminophen (Ofirmev) 1,000 mg in 100 mls @ 400 mls/hr IV Q8H PRN PRN Reason: Pain Rating 1-3 & Pre PT Stop: 12/27/21 13:05 Influenza Virus Vaccine Quadrival (Do Not Administer Flu Vaccine) 1 ea N/A PRN PRN PRN Reason: Notification Stop: 01/23/22 13:05 Insulin Aspart (Insulin Aspart Per Unit) 0 units SC ACHS [facility] Stop: 01/23/22 16:29 Last Admin: 12/25/21 13:13 Dose: Not Given Documented by: Levothyroxine Sodium (Levothyroxine Sodium 100 Mcg Tablet) 100 mcg PO DAILYBB [facility] Stop: 01/24/22 06:29 Last Admin: 12/25/21 05:33 Dose: 100 mcg Documented by: Lorazepam (Lorazepam 0.5 Mg Tab) 0.5 mg PO Q8H PRN PRN Reason: Sedation/Anxiety Stop: 01/23/22 13:05 Lorazepam (Lorazepam 2 Mg/1 Ml Vial) 0.5 mg IV Q8H PRN PRN Reason: Sedation/Anxiety Stop: 01/23/22 13:05 Magnesium Hydroxide (Magnesium Hydroxide Susp 30 Ml Udc) 30 ml PO Q24H PRN PRN Reason: Constipation Stop: 01/23/22 13:05 Metoclopramide HCl (Metoclopramide Hcl Inj 5 Mg/Ml 2 Ml Vial) 10 mg IV Q6H PRN PRN Reason: Nausea &/or Vomiting Stop: 01/23/22 13:05 Metoprolol Tartrate (Metoprolol Tartrate 25 Mg Tab) 25 mg PO BID [facility] Stop: 01/23/22 20:59 Last Admin: 12/25/21 08:40 Dose: 25 mg Documented by: Miscellaneous (*Vilazodone* Order Awaiting Action) 1 ea N/A QS MATHEW Stop: 01/23/22 15:59 Last Admin: 12/25/21 08:40 Dose: Not Given Documented by: Miscellaneous (Carbohydrates For Hypoglycemia ) 15 - 30 gm PO UD PRN PRN Reason: Hypoglycemia Protocol Stop: 01/23/22 13:58 Naloxone HCl (Naloxone Hcl 0.4 Mg/1 Ml Vial/Carp) 0.1 mg IV Q5M PRN PRN Reason: Oversedation/Resp depression Stop: 01/23/22 13:05 Ondansetron HCl (Ondansetron Inj 2 Mg/Ml 2 Ml Vial) 4 mg IV Q6H PRN PRN Reason: Nausea &/or Vomiting Stop: 01/23/22 13:05 Ondansetron HCl (Ondansetron 4 Mg Od Tab) 4 mg PO Q6H PRN PRN Reason: Nausea Stop: 01/23/22 13:05 Pneumococcal Polyvalent Vaccine (Do Not Administer Pneumococcal Vaccine) 1 ea N/A PRN PRN PRN Reason: Notification Stop: 01/23/22 13:05 Polyethylene Glycol (Polyethylene (Miralax) 17 Gm Pack) 17 gm PO Q6 MATHEW Stop: 01/24/22 05:59 Last Admin: 12/25/21 12:29 Dose: 17 gm Documented by: Potassium Chloride (Potassium Chloride Crtab 20 Meq Tabcr) 20 meq PO BID MATHEW Stop: 01/23/22 20:59 Last Admin: 12/25/21 08:41 Dose: 20 meq Documented by: Pravastatin Sodium (Pravastatin Sod 20 Mg Tab) 20 mg PO HS [facility] Stop: 01/23/22 20:59 Last Admin: 12/24/21 20:55 Dose: 20 mg Documented by: Promethazine HCl (Promethazine Hcl 25 Mg Tab) 25 mg PO Q6H PRN PRN Reason: Nausea Stop: 01/23/22 13:05 Senna/Docusate Sodium (Docusate Sodium/Senna 50/8.6mg Tab) 2 tab PO HS [facility] Stop: 01/23/22 20:59 Last Admin: 12/24/21 20:55 Dose: 2 tab Documented by: Sodium Biphosphate/Sodium Phosphate (Sod Phosphate/Sod Biphosphate Enema 132 Ml Btl) 132 ml [place] ONE PRN PRN Reason: Constipation Stop: 01/23/22 13:05 Vitamin D (Cholecalciferol 1,000 Units 25 Mcg Tab) 2,000 units PO [id number]@0900 [facility]; Protocol Stop: 01/23/22 13:59 Last Admin: 12/24/21 16:34 Dose: 2,000 units Documented by:
[2021-12-25] MEDS: allopurinoL 300 MG TAB PO SCH (20:08)
[2021-12-25] MEDS: PRAVASTATIN SOD 20 MG TAB PO SCH (20:09)
[2021-12-25] MEDS: DOCUSATE SODIUM/SENNA 50/8.6MG TAB PO SCH (20:09)
[2021-12-26] MEDS: HYDROmorphone HCL 2 MG TAB PO PRN ×2 (03:39→12:27)
[2021-12-26] MEDS: POLYETHYLENE (MIRALAX) 17 GM PACK PO SCH ×2 (04:49→12:13)
[2021-12-26] MEDS: LEVOTHYROXINE SODIUM 100 MCG TABLET PO SCH (04:53)
[2021-12-26 06:20] LABS: Basophils # (auto) 0.04 K/uL (0-0.2); Basophils % (auto) 0.4 %; Eosinophils # (auto) 0.45 K/uL (0-0.5); Eosinophils % (auto) 4.9 %; Hematocrit (blood only) 32.2 % (37-47); Hemoglobin 10.7 g/dL (12.0-16.0); Immature Granulocytes # (auto) 0.03 K/uL (0.00-0.02); Immature Granulocytes % (auto) 0.3 %; Lymphocytes # (auto) 1.78 K/uL (1.2-3.4); Lymphocytes % (auto) 19.3 %; Mean Corpuscular Hemoglobin 28.4 pg (25-34); Mean Corpuscular Hgb Conc 33.2 g/dL (32-36); Mean Corpuscular Volume 85.4 fL (80-100); Mean Platelet Volume 10.1 fL (7.4-10.4); Monocytes # (auto) 0.97 K/uL (0.11-0.59); Monocytes % (auto) 10.5 %; Neutrophils # (auto) 5.95 K/uL (1.4-6.5); Neutrophils % (auto) 64.6 %; Platelet Count 249 K/uL (130-400); RDW Coefficient of Variation 17.6 % (11.5-14.5); Red Blood Count 3.77 M/uL (4.2-5.4); White Blood Count 9.22 K/uL (4.8-10.8)
[2021-12-26 06:42] LABS: BUN Creatinine Ratio 21.4 (10-20); Calcium 8.7 mg/dl (8.5-10.1); Creatinine Clr Calc Pharmacy 81.8 ml/min; Est GFR (African American) 104.6 ml/min; Est GFR (Non-African American) 90.3 ml/min; Potassium 3.6 mmol/L (3.5-5.1)
--- NOTE | 2021-12-26 08:31 | Discharge Summary ---
Date of Service December 26, 2021 Admission HPI Per Admitting Provider This is a 66-year-old female who presents with current persistent back and bilateral leg pain. Failed extensive course of nonoperative care is here for surgical invention. Principal Diagnosis Lumbar spinal stenosis with neurogenic claudication Discharge Data Allergies Allergy/AdvReac Type Severity Reaction Status Date / Time ampicillin Allergy Severe RASH/ITCHY Verified 12/24/21 06:24 THROAT cephalexin [From Keflex] Allergy Severe RASH/ITCHY Verified 12/24/21 06:24 THROAT fish derived Allergy Severe Anaphylaxis Verified 12/24/21 06:24 hydrocodone Allergy Severe RASH/ITCHING Verified 12/24/21 06:24 ALL OVER BODY morphine Allergy Severe Anaphylaxis Verified 12/24/21 06:24 oxycodone [From Percocet] Allergy Severe Anaphylaxis Verified 12/24/21 06:24 Penicillins Allergy Severe TONGUE Verified 12/24/21 06:24 SWELLING prednisone Allergy Severe THROAT Verified 12/24/21 06:24 SWELLING tramadol Allergy Severe RASH/ITCHY Verified 12/24/21 06:24 THROAT codeine Allergy Intermediate nausea, Verified 12/24/21 06:24 vomiting, urticaria and pruritus IV ANTIBIOTICS Allergy Severe ORAL YEAST Uncoded 12/24/21 06:24 INFECTION/THRUSH Consultations 12/24/21 13:06 Consult Hospitalist Routine Procedures Performed Operation Date: 12/24/21 07:45 Actual Procedures p L3-S1 Revision Decompression and Fusion, Spinal Cord Monitoring(Not Applicable) - Jai Cho DO Ordered Studies 12/24/21 07:45 FL lumbar spine 2-3V Routine Hospital Course (1) Neurogenic claudication due to lumbar spinal stenosis: Patient underwent multilevel lumbar decompression fusion tolerated this well was taken to orthopedic for postoperative. Postop day 1 she was up and ambulating progressed to postop day 1 or 2. ANAND drain decreasing probably. Pain well controlled. Excellent strength testing. Separately discharged home. Discharge orders instructions found in chart for further review. Total Time Total Time Spent Total Time Spent (In Minutes): 20 minutes Discharge Plan Discharge Items Patient Disposition: Home - Self-Care Reason For Visit: Spinal Stenosis Lumbar Region Radiculopathy Discharge Diagnosis: Lumbar spinal stenosis with neurogenic claudication Activity: As commented below Non-emergency contact: Primary Care Provider Call non-emergency contact if: you have any medication questions Follow-up/Referrals: Love Price DO [Primary Care Provider] - Diet: Regular Addtl Attending Provider Instructions: ACTIVITY RECOMMENDATIONS: SELF CARE INSTRUCTIONS AFTER THORACIC/LUMBAR FUSIONS 1. You may walk to your tolerance. It is good exercise for your legs and back. Expect some back and intermittent leg aches and pains. 2. You may perform "counter-top" level activities (make a sandwich, ariana with a project, etc.). 3. No bending or lifting of more than 10 pounds or back twisting of any nature (roll like a log when turning in bed). 4. You may ride in a car for 20-30 minutes at a time. No driving until after your first visit with your doctor. 5. Frequent changes of position and restricting sitting to 30 minutes at a time will help limit the amount of back spasms and stiffness you may experience. 6. You may discontinue the use of ambulatory aids (cane, crutches, etc.) once your strength and confidence allow. 7. 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 Do not take a tub bath, sit in a hot tub or go into a swimming pool until after your first recheck in the office. SPECIAL CARE INSTRUCTIONS: VERY IMPORTANT TO READ AND REVIEW A. Your surgical incision has been closed with a cosmetic suture under the skin that will dissolve in about 6 weeks. In 14 days, you can use a pair of clean scissors and cut the suture that is left outside of the skin at the ends of your incision. 1. The small skin tapes can be removed 7 days after surgery if they have not fallen off by that point. 2. You may keep the wound open to air as much as possible to promote healing after post-op day number 5 unless told otherwise by your doctor. 3. If you think the wound looks like it is becoming infected (redness or worsening drainage) and/or you are experiencing fever, chill or worsening back pain and muscle spasms, contact the office so that we may evaluate you as soon as possible. B. Complications are uncommon, but please contact us if you have any signs or symptoms of: 1. wound infection (fever higher than 102.5 degrees F, redness, separation of wound, drainage, or increasing pain from the incision) 2. blood clots in legs (pain, swelling, redness and warmth in legs) 3. urinary tract infection (fever higher than 102.5 degrees F, burning upon urination or increased frequency of urination) 4. nerve problems (inability to walk on your toes or heels, numbness, loss of bowel or bladder control) 5. any other symptoms that concern you C. Please call the office at if you have any concerns or questions about your operation or recovery. D. No smoking! Smoking drastically decreases the chance of a solid fusion. E. Do not take any anti-inflammatory medications (Indocin, Advil, Motrin, Aspirin, Naprosyn, etc.) as these may inhibit the chance of a solid fusion. Tylenol is okay to take for pain. MANAGING PAIN AFTER SPINAL SURGERY 1. Narcotic medication is intended for short-term use and will be provided for surgical pain. Surgical pain usually lasts for a period of 4-6 weeks. Narcotic medication includes Percocet, Vicodin, Darvocet, Tylenol #3 or Lortab. 2. Longer-term pain is more appropriately treated with non-narcotic medication such as Tylenol ES. 3. Muscle spasm is not appropriately treated with narcotics. Muscle relaxers such as Soma, Flexeril or Skelaxin can be used along with Tylenol ES. 4. Remember that we all live with some "aches and pains". This is not unusual or uncommon after an injury or as we get older. a. Back pain is expected and may include muscle spasms for 4 to 6 weeks after surgery. The pain should gradually improve. If the pain worsens for no apparent reason, please contact the office. b. Intermittent leg pain may also be experienced and should not be concerned about unless it worsens for no apparent reason. If so, please contact the office. 5. We will provide appropriate medication within the normal guidelines of their prescribed use. We will also be very cautious and aware of potential abuse and extended duration of patients' medication needs. a. Pain medications are for your comfort and to assist with sleep and rest so that the tissue can heal. They are not provided in order to return to normal activity and should not be used through the day. To do so or worsening pain at night can result from ongoing tissue damage and development of tolerance to the prescribed medicine. 6. Please allow 2-3 days to process refills. Prescriptions will not be mailed but must be picked up at the office. FOLLOW UP VISIT: Keep your scheduled follow-up appointment. Any questions, please call the office at . Pending Studies at Discharge: No Stand-Alone Forms: My [facility], Smoking Cessation Medications and DC Order Prescriptions: New hydromorphone [Dilaudid] 2 mg Tablet 2 mg PO Q6 PRN (Reason: pain) Qty: 20 RF: 0 Continued potassium chloride 10 mEq Capsule, Extended Release 20 meq PO BID RF: 0 aspirin 81 mg Tablet,Delayed Release (Dr/Ec) 81 mg PO QAM RF: 0 alprazolam [Xanax] 0.25 mg Tablet 0.25 mg PO BID PRN (Reason: Anxiety) RF: 0 biotin 10,000 mcg Capsule 10,000 mcg PO QAM RF: 0 promethazine 25 mg Tablet 25 mg PO Q6H PRN (Reason: Nausea) RF: 0 allopurinol 300 mg Tablet 300 mg PO HS RF: 0 pravastatin 20 mg Tablet 20 mg PO HS RF: 0 hydrochlorothiazide 25 mg Tablet 25 mg PO QAM RF: 0 cyanocobalamin (vitamin B-12) 1,000 mcg/mL Syringe 1,000 mcg 3XWK RF: 0 metoprolol tartrate 25 mg Tablet 25 mg PO BID RF: 0 cholecalciferol (vitamin D3) [Vitamin D3] 50 mcg (2,000 unit) Capsule 50 mcg PO 3XWK RF: 0 Viibryd 20 mg Tablet 20 mg PO QAM RF: 0 metformin 1,000 mg Tablet 1,000 mg PO BID RF: 0 levothyroxine [Synthroid] 100 mcg Tablet 100 mcg PO DAILY RF: 0 Discharge Orders: Discharge Order (Routine); Ordered 12/26/21 Ordered By: Jai Cho Admission Data Admit Date/Time: 12/24/21 10:51 Attending Provider: Jai Cho Admit Provider: Jai Cho Primary Care Provider: Love Price Other Providers: Theodora Leija ; Sarah English
[2021-12-26] MEDS: POTASSIUM CHLORIDE CRTAB 20 MEQ TABCR PO SCH (09:10)
[2021-12-26] MEDS: hydroCHLOROthiazide 25 MG TAB PO SCH (09:10)
[2021-12-26] MEDS: ASPIRIN 81 MG ECTAB PO SCH (09:10)
[2021-12-26] MEDS: METOPROLOL TARTRATE 25 MG TAB PO SCH (09:10)
[2021-12-26] MEDS: INSULIN ASPART PER UNIT SC SCH ×2 (09:25→12:16)
--- NOTE | 2021-12-26 10:52 | Hospitalist Progress Note ---
Date of Service December 26, 2021 Assessment & Plan (1) Status post lumbar surgery: Plan: Post op day# 2 S/P revision decompression L2-S1 and fusion L3-S1 by Dr Tammie THOMPSON#100ml -pain management per ortho -wound management per ortho -PT/OT as appropriate -DVT prophylaxis per ortho -incentive spirometry -monitor H&H for acute blood loss anemia; pre-op Hgb: 14 -Hemoglobin is 10.9 on 12/25/2021-we will monitor -Medically stable with ongoing pain at the back -Hemoglobin remains stable at more than 10 and electrolytes are unremarkable -Will be discharged home this afternoon by the primary (2) Diabetes mellitus, type 2: Plan: A1c: 6.0 on 12/10/2021 -Hold home metformin -NovoLog sliding scale per protocol (3) Hypertension: Plan: -Continue metoprolol tartrate, HCTZ with holding parameters -Blood pressure remains stable (4) Hyperlipidemia: Plan: -Continue pravastatin (5) Chronic obstructive pulmonary disease: Plan: Not on home inhalers -Albuterol neb as needed (6) Nocturnal hypoxia: Plan: - Continue 2.5 L oxygen at bedtime (7) Anxiety and depression: Plan: - Continue home meds (8) Tobacco use: Plan: -Denies nicotine patch H/O THYROIDECTOMY -Continue levothyroxine DVT Prophylaxis -SCDs per ortho Disposition per primary service Follows with Dr oLve Price for routine care Medically stable Admission and Anticipated Discharge Date Admission Date: December 24, 2021 Subjective 12/25/2021 The patient was seen and examined in medical floor She is a status post L3-S1 revision decompression and fusion Has been complaining of pain but otherwise stable and wants to go home Denies any chest pain, palpitation or shortness of breath 12/26/2021 The patient was seen and examined in medical floor She complains to pain at the back but denies any other symptoms She will be going home this afternoon Review of Systems Review of Systems: All systems reviewed and are unremarkable except as noted below Physical Exam Physical Exam: Sitting on a chair with minimal distress due to pain Constitutional: well developed, well nourished, + ill appearing and + obese Eyes: PERRL, conjunctivae normal, anicteric sclerae ENMT: external ear and nose normal, oropharynx normal Neck: trachea midline, no thyromegaly Respiratory: no respiratory distress Auscultation: lungs clear to auscultation bilaterally Cardiovascular: Rate/Rhythm: regular rate and regular rhythm; not tachycardic Heart Sounds: normal S1 and normal S2; no murmur Extremities: + edema (Trace edema bilaterally) Gastrointestinal (Abdomen): Inspection/Auscultation: + abdomen distended and normal bowel sounds Percussion/Palpation: abdomen soft; abdomen nontender Musculoskeletal: Back pain and tenderness status post lumbar back surgery Neurologic: Alert, awake and oriented x3. No focal sensory or no motor deficit Psychiatric: A+Ox3, euthymic affect Lymphatic: no cervical or axillary lymphadenopathy Results & Data Results & Data ([facility]) Vital Signs (Past 12 Hours) Vital Signs Temp Pulse Resp BP Pulse Ox 12/26/21 09:08 89 116/72 12/26/21 07:53 36.6 C 81 16 112/66 92 Laboratory Results Short CBC 12/26/21 Range/Units 05:23 WBC 9.22 (4.8-10.8) K/uL Hgb 10.7 L (12.0-16.0) g/dL Hct 32.2 L (37-47) % Plt Count 249 (130-400) K/uL BMP 12/26/21 05:23 Sodium 137 Potassium 3.6 Chloride 103 Carbon Dioxide 25 BUN 15 Creatinine 0.70 Glucose 108 H Calcium 8.7 Medications Administered Current Inpatient Medications Acetaminophen (Acetaminophen 500 Mg Tab) 1,000 mg PO Q8H PRN PRN Reason: MILD Pain Scale 1,2,3 & Pre PT Stop: 01/23/22 13:05 Last Admin: 12/26/21 04:56 Dose: 1,000 mg Documented by: Al Hydrox/Mg Hydrox/Simethicone (Aluminum/Magnesium Susp 30 Ml Udc) 30 ml PO Q6H PRN PRN Reason: Dyspepsia Stop: 01/23/22 13:05 Albuterol (Albuterol 0.083% Nebu Soln 3 Ml Vial) 2.5 mg NEB Q6R PRN; Protocol PRN Reason: Shortness Of Breath Or Wheezing Stop: 01/23/22 14:12 Allopurinol (Allopurinol 300 Mg Tab) 300 mg PO HS MATHEW Stop: 01/23/22 20:59 Last Admin: 12/25/21 20:08 Dose: 300 mg Documented by: Alprazolam (Alprazolam 0.25 Mg Tablet) 0.25 mg PO BID PRN PRN Reason: Anxiety Stop: 01/23/22 13:05 Aspirin (Aspirin 81 Mg Ectab) 81 mg PO [facility] Stop: 01/24/22 08:59 Last Admin: 12/26/21 09:10 Dose: 81 mg Documented by: Bisacodyl (Bisacodyl 10 Mg Supp) 10 mg MT DAILY PRN PRN Reason: Constipation Stop: 01/23/22 13:05 Dextrose (Dextrose 50% 50 Ml Syringe) 25 - 50 ml IV UD PRN; Protocol PRN Reason: Hypoglycemia Protocol Stop: 01/23/22 13:58 Diphenhydramine HCl (Diphenhydramine Capsule 25 Mg Cap) 25 mg PO Q6H PRN PRN Reason: Allergic Rhinitis/Insomnia Stop: 01/23/22 13:05 Last Admin: 12/25/21 08:01 Dose: 25 mg Documented by: Famotidine (Famotidine 20 Mg Tab) 20 mg PO Q12H PRN PRN Reason: Dyspepsia Stop: 01/23/22 13:05 Glucagon (Glucagon For Inj 1 Mg Vial) 1 mg SQ UD PRN; Protocol PRN Reason: Hypoglycemia Protocol Stop: 01/23/22 13:58 Glucose (Glucose 10 Tabs/Tube) 4 - 8 tabs PO UD PRN; Protocol PRN Reason: Hypoglycemia Protocol Stop: 01/23/22 13:58 Glucose (Glucose 40% Gel 15 Gm Tube) 15 - 30 gm PO UD PRN; Protocol PRN Reason: Hypoglycemia Protocol Stop: 01/23/22 13:58 Hydrochlorothiazide (Hydrochlorothiazide 25 Mg Tab) 25 mg PO [facility] Stop: 01/24/22 08:59 Last Admin: 12/26/21 09:10 Dose: Not Given Documented by: Hydromorphone HCl (Hydromorphone Inj 0.5 Mg/0.5 Ml Syr) 0.5 mg IV Q3H PRN PRN Reason: MODERATE Pain (Scale 4,5,6) & Pre PT Stop: 01/07/22 13:05 Hydromorphone HCl (Hydromorphone Inj 1 Mg/Ml Syringe) 1 mg IV Q3H PRN PRN Reason: SEVERE Pain (Scale 7,8,9,10) Stop: 01/07/22 13:05 Last Admin: 12/25/21 05:38 Dose: 1 mg Documented by: Hydromorphone HCl (Hydromorphone Hcl 2 Mg Tab) 2 mg PO Q4 PRN PRN Reason: moderate-severe Pain Stop: 01/08/22 11:18 Last Admin: 12/26/21 03:39 Dose: 2 mg Documented by: Hydroxyzine HCl (Hydroxyzine Hcl 25 Mg Tab) 25 mg PO Q8H PRN PRN Reason: Anxiety Stop: 01/23/22 13:05 Promethazine HCl 12.5 mg/ (Sodium Chloride) 50.5 mls @ 202 mls/hr IV Q6H PRN PRN Reason: Nausea &/or Vomiting Stop: 01/23/22 13:05 Acetaminophen (Ofirmev) 1,000 mg in 100 mls @ 400 mls/hr IV Q8H PRN PRN Reason: Pain Rating 1-3 & Pre PT Stop: 12/27/21 13:05 Last Infusion: 12/25/21 16:59 Dose: Infused Documented by: Influenza Virus Vaccine Quadrival (Do Not Administer Flu Vaccine) 1 ea N/A PRN PRN PRN Reason: Notification Stop: 01/23/22 13:05 Insulin Aspart (Insulin Aspart Per Unit) 0 units SC [facility] Stop: 01/23/22 16:29 Last Admin: 12/26/21 09:25 Dose: Not Given Documented by: Levothyroxine Sodium (Levothyroxine Sodium 100 Mcg Tablet) 100 mcg PO DAILYBB [facility] Stop: 01/24/22 06:29 Last Admin: 12/26/21 04:53 Dose: 100 mcg Documented by: Lorazepam (Lorazepam 0.5 Mg Tab) 0.5 mg PO Q8H PRN PRN Reason: Sedation/Anxiety Stop: 01/23/22 13:05 Lorazepam (Lorazepam 2 Mg/1 Ml Vial) 0.5 mg IV Q8H PRN PRN Reason: Sedation/Anxiety Stop: 01/23/22 13:05 Magnesium Hydroxide (Magnesium Hydroxide Susp 30 Ml Udc) 30 ml PO Q24H PRN PRN Reason: Constipation Stop: 01/23/22 13:05 Metoclopramide HCl (Metoclopramide Hcl Inj 5 Mg/Ml 2 Ml Vial) 10 mg IV Q6H PRN PRN Reason: Nausea &/or Vomiting Stop: 01/23/22 13:05 Metoprolol Tartrate (Metoprolol Tartrate 25 Mg Tab) 25 mg PO BID MATHEW Stop: 01/23/22 20:59 Last Admin: 12/26/21 09:10 Dose: 25 mg Documented by: Miscellaneous (*Vilazodone* Order Awaiting Action) 1 ea N/A QS MATHEW Stop: 01/23/22 15:59 Last Admin: 12/26/21 09:09 Dose: Not Given Documented by: Miscellaneous (Carbohydrates For Hypoglycemia ) 15 - 30 gm PO UD PRN PRN Reason: Hypoglycemia Protocol Stop: 01/23/22 13:58 Naloxone HCl (Naloxone Hcl 0.4 Mg/1 Ml Vial/Carp) 0.1 mg IV Q5M PRN PRN Reason: Oversedation/Resp depression Stop: 01/23/22 13:05 Ondansetron HCl (Ondansetron Inj 2 Mg/Ml 2 Ml Vial) 4 mg IV Q6H PRN PRN Reason: Nausea &/or Vomiting Stop: 01/23/22 13:05 Ondansetron HCl (Ondansetron 4 Mg Od Tab) 4 mg PO Q6H PRN PRN Reason: Nausea Stop: 01/23/22 13:05 Pneumococcal Polyvalent Vaccine (Do Not Administer Pneumococcal Vaccine) 1 ea N/A PRN PRN PRN Reason: Notification Stop: 01/23/22 13:05 Polyethylene Glycol (Polyethylene (Miralax) 17 Gm Pack) 17 gm PO Q6 MATHEW Stop: 01/24/22 05:59 Last Admin: 12/26/21 04:49 Dose: Not Given Documented by: Potassium Chloride (Potassium Chloride Crtab 20 Meq Tabcr) 20 meq PO BID MATHEW Stop: 01/23/22 20:59 Last Admin: 12/26/21 09:10 Dose: 20 meq Documented by: Pravastatin Sodium (Pravastatin Sod 20 Mg Tab) 20 mg PO HS MATHEW Stop: 01/23/22 20:59 Last Admin: 12/25/21 20:09 Dose: 20 mg Documented by: Promethazine HCl (Promethazine Hcl 25 Mg Tab) 25 mg PO Q6H PRN PRN Reason: Nausea Stop: 01/23/22 13:05 Senna/Docusate Sodium (Docusate Sodium/Senna 50/8.6mg Tab) 2 tab PO HS [facility] Stop: 01/23/22 20:59 Last Admin: 12/25/21 20:09 Dose: 2 tab Documented by: Sodium Biphosphate/Sodium Phosphate (Sod Phosphate/Sod Biphosphate Enema 132 Ml Btl) 132 ml MT ONE PRN PRN Reason: Constipation Stop: 01/23/22 13:05 Vitamin D (Cholecalciferol 1,000 Units 25 Mcg Tab) 2,000 units PO MoWeFr@0900 [facility]; Protocol Stop: 01/23/22 13:59 Last Admin: 12/24/21 16:34 Dose: 2,000 units Documented by:
== END 2021-12-26 13:54 | disposition home or self-care (01) | DRG 455 ==
LOC: ASU 05:52 → 3E 10:51